=== PATIENT | male | born 2000 | race American Indian/Alaskan Native ===

== ENCOUNTER 2019-04-29 11:07 | Emergency (ER) | payer MEDICAID ==
[2019-04-29 11:15] VITALS: BP 150/77
[2019-04-29] MEDS ORDERED: NORCO 5/325 PO ONE (11:36)
[2019-04-29] MEDS ORDERED: XYLOCAINE 1% 20 mL INFILTRATI ONE (12:07)
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
[2019-04-29] MEDS ORDERED: BOOSTRIX IM ONE (12:28)
== END 2019-04-29 15:19 | disposition home or self-care (01) ==
LOC: ED 11:07
DX: S61.212A Laceration without foreign body of right middle finger without damage to nail, initial encounter (principal); Z79.899 Other long term (current) drug therapy; Y29.XXXA Contact with blunt object, undetermined intent, initial encounter; Y93.89 Activity, other specified; Y92.098 Other place in other non-institutional residence as the place of occurrence of the external cause; Y99.8 Other external cause status
CPT/HCPCS: 90471; 90715; 99283

== ENCOUNTER 2019-09-15 17:50 | Emergency (ER) | payer MEDICAID ==
[2019-09-15 18:49] VITALS: BP 122/83
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
== END 2019-09-15 20:23 | disposition home or self-care (01) ==
LOC: ED 17:50
DX: S39.012A Strain of muscle, fascia and tendon of lower back, initial encounter (principal); V49.49XA Driver injured in collision with other motor vehicles in traffic accident, initial encounter; Y93.89 Activity, other specified; Y92.488 Other paved roadways as the place of occurrence of the external cause; Y99.8 Other external cause status
CPT/HCPCS: 99282

== ENCOUNTER 2020-03-14 11:00 | Emergency (ER) | payer MEDICAID ==
[2020-03-14 11:06] VITALS: BP 141/79
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
== END 2020-03-14 11:20 | disposition left against medical advice (07) ==
LOC: ED 11:00
DX: S16.1XXA Strain of muscle, fascia and tendon at neck level, initial encounter (principal); S29.012A Strain of muscle and tendon of back wall of thorax, initial encounter; J45.909 Unspecified asthma, uncomplicated; F17.200 Nicotine dependence, unspecified, uncomplicated; Z79.899 Other long term (current) drug therapy; Z53.21 Procedure and treatment not carried out due to patient leaving prior to being seen by health care provider; V49.49XA Driver injured in collision with other motor vehicles in traffic accident, initial encounter; Y93.89 Activity, other specified; Y92.410 Unspecified street and highway as the place of occurrence of the external cause; Y99.8 Other external cause status

== ENCOUNTER 2021-01-14 09:31 | Emergency (ER) | payer MEDICAID | END 2021-01-14 09:35 | disposition left against medical advice (07) | LOC: ED 09:31 | DX: K08.89 Other specified disorders of teeth and supporting structures (principal); Z53.21 Procedure and treatment not carried out due to patient leaving prior to being seen by health care provider ==